=== PATIENT | female | born 1970 | race African-American/Black ===

== ENCOUNTER 2017-02-18 11:50 | Emergency (ER) | payer OTHER ==
--- NOTE | ~2017-02-18 | CT71 ---
[facility] A Service of [facility] RADIOLOGY TEXT RESULTS PATIENT: ROCKY BATEMAN LOCATION: [facility] : 70 UNIT #: [id number] AGE: [address]: Robin Napier MD SEX: F ORDER DR: [id number] [place] [id number] [facility]. [place], [place] [address] [id number] E MR#: [id number] Acc #: [id number] NAME: ROCKY BATEMAN. : 1970 SEX: F STUDY DATE/TIME: 02/18/2017 14:03 UNIT: [facility] ROOM: STUDY DESCRIPTION: CT Head Wo Contrast Attending Physician: Robin Napier M.D. Ordering Physician: Robin Napier M.D. Primary Care Physician: Gemini Acosta M.D. MEDICAL IMAGING REPORT This report is preliminary unless electronic signature is present EXAM CT head without contrast. INDICATIONS Dizziness and headache for the past [address] of the head. This CT exam was performed with one or more of the following radiation dose reduction techniques: automatic exposure control, adjustment of mA and/or kV according to patient size, and iterative reconstruction. COMPARISON None FINDINGS No acute hemorrhage, abnormal mass effect, extraaxial fluid collection or hydrocephalus. No calvarial fracture. Paranasal sinuses, mastoid air cells clear. IMPRESSION No acute intracranial findings. Dictated by... Vinnie Dahl M.D. THIS IS AN ELECTRONICALLY VERIFIED REPORT Vinnie Dahl M.D. at 02/19/2017 2:17 PM ZURDO/waldo TD: 02/18/2017 16:27 JOB #: [id number] [facility] A Service [facility] RADIOLOGY TEXT RESULTS PATIENT: ROCKY BATEMAN LOCATION: [facility] : 70 UNIT #: [id number] AGE: [address]: Robin Napier MD SEX: F ORDER DR: MEDICAL IMAGING REPORT Page 1 of 1 COPY
--- NOTE | ~2017-02-18 | EKG ---
PATIENT: ROCKY BATEMAN UNIT #: [id number] Ventricular Rate: 72 BPM Atrial Rate: 72 BPM P-R Interval: 154 ms QRS Duration: 72 ms Q-T Interval: 390 ms QTC Calculation(Bezet): 427 ms P Mulberry: 28 degrees Calculated R Mulberry: 36 degrees Calculated T Mulberry: 11 degrees Diagnosis Line: Normal sinus rhythm Diagnosis Line: Normal ECG Diagnosis Line: When compared with ECG of 02-MAY-2014 15:29, Diagnosis Line: No significant change was found Diagnosis Line: Confirmed by MATTHEW YANEZ MD ([id number]) on 02/19/2017 Diagnosis Line: 6:35:26 PM INTERPRETING MD: BEAU AGGARWAL
--- NOTE | ~2017-02-18 | CR169 ---
[facility] A Service of [facility] & [facility] RADIOLOGY TEXT RESULTS PATIENT: ROCKY BATEMAN LOCATION: [facility] : 70 UNIT #: [id number] AGE: [address]: Robin Napier MD SEX: F ORDER DR: [id number] [facility] [address] [facility] [place], [place] [address] [id number] E MR#: [id number] Acc #: [id number] NAME: ROCKY BATEMAN : 1970 SEX: F STUDY DATE/TIME: 02/18/2017 12:55 UNIT: [facility] ROOM: STUDY DESCRIPTION: CR Knee 2 Views Lt Attending Physician: Robin Napier M.D. Ordering Physician: Robin Napier M.D. Primary Care Physician: Gemini Acosta M.D. MEDICAL IMAGING REPORT This report is preliminary unless electronic signature is present EXAM Left knee 2 views 02/18/2017 1255 hours HISTORY 46-year-old woman with one week history of pain and swelling of the left knee. No reported injury. COMPARISON None. FINDINGS AP and cross-table lateral views demonstrate a small suprapatellar bursa effusion without lipohemarthrosis. There is trace spurring in the medial and lateral compartments. No fracture or loose body. IMPRESSION 1. Small suprapatellar bursa effusion is present without lipohemarthrosis or fracture. 2. Trace spurring in the medial and lateral compartments. No fracture or loose body. Dictated by... Hillary Murguia M.D. THIS IS AN ELECTRONICALLY VERIFIED REPORT Hillary Murguia M.D. at 02/18/2017 5:50 PM FROYLAN/anh TD: 02/18/2017 15:16 JOB #: [id number] MEDICAL IMAGING REPORT Page 1 of 1 COPY
[~2017-02-18 11:50] MED LIST: ACID REDUCER75 M1 PO; BENADRYL ALLERG25 MG PO; COMBIVENT INH14.7 GM INH; HYDROCODON-ACE1 EAC9 PO; LISINOPRIL-HCTZ1 T19 PO; LISINOPRIL10 MG PO; NORCO 7.5-3251 EACH PO; NORVASC PO; NORVASC10 MG PO; PREDNISONE PO; PROTONIX PO; TRIAMTERENE/HCTZ PO; ULTRAM PO; XANAX1 MG PO; ZANAFLEX4 M1 PO
[2017-02-18 12:31] LABS: BASOPHIL% 0.6 % (0-2.5); EOSINOPHIL# 0.3 X10e3 (0-0.7); EOSINOPHIL% 4.8 % (0.0-7.0); HEMATOCRIT 44.2 % (35.0-45.0); HEMOGLOBIN 14.2 gm/dL (12.0-16.0); LYMPHOCYTE# 2.7 X10e3 (1.0-3.5); LYMPHOCYTE% 40.8 % (17.0-45.0); MEAN CELL VOLUME 83.3 FL (83-96); MEAN CORPUSCULAR HEMOGLOBIN 26.7 PG (28-34); MEAN CORPUSCULAR HGB CONC 32.1 g/dL (30-36); MEAN PLATELET VOLUME 8.4 FL (6.5-11.5); MONOCYTE# 0.5 X10e3 (0-1.0); MONOCYTE% 7.9 % (3.0-12.0); NEUTROPHIL# 3.1 X10e3 (1.5-7.1); NEUTROPHIL% 45.9 % (40-75); PLATELET COUNT 224 X10e3 (140-420); RED BLOOD COUNT 5.31 X10e (3.90-5.30); RED CELL DISTRIBUTION WIDTH 14.9 % (11.0-15.5); WHITE BLOOD COUNT 6.6 X10e3 (4.0-10.5)
[2017-02-18 12:40] LABS: DIFF IND NO
[2017-02-18 12:58] LABS: ALBUMIN SERUM 4.4 g/dL (3.5-5.0); ALKALINE PHOSPHATASE 70 U/L (32-92); ALT (SGPT) 17 U/L (10-40); AST (SGOT) 15 U/L (10-42); BILIRUBIN,TOTAL 0.6 mg/dL (0.2-2.0); BLOOD UREA NITROGEN 12 mg/dL (9-23); CALCIUM SERUM 9.2 mg/dL (8.4-10.2); CARBON DIOXIDE 25 mmol/L (22-31); CHLORIDE 105 mmol/L (100-111); CREATININE SERUM 0.8 mg/dL (0.6-1.4); GLOM FILT RATE Estimated 102.6 mL/min (>60); GLUCOSE FASTING 104 mg/dL (70-110); POTASSIUM 4.1 mmol/L (3.5-5.1); PROTEIN TOTAL SERUM 7.5 g/dL (6.0-8.3); SODIUM 139 mmol/L (135-145)
[2017-02-18 13:07] LABS: BILIRUBIN, DIRECT <0.1 mg/dL (0.0-0.2); BILIRUBIN,INDIRECT 0.5 mg/dL (0.0-0.9)
== END 2017-02-18 15:22 | disposition home or self-care (01) ==
LOC: CED 11:50
PROVIDERS: Emergency Medicine
DX: R42 Dizziness and giddiness (principal); K21.9 Gastro-esophageal reflux disease without esophagitis; Z90.710 Acquired absence of both cervix and uterus; Z90.49 Acquired absence of other specified parts of digestive tract
CPT/HCPCS: 70450; 73560; 80048; 80076; 85025; 93005; 96372; 96374; 96375; 99284; J1100; J1885; J2765

== ENCOUNTER 2017-02-24 22:27 | Emergency (ER) | payer OTHER | END 2017-02-24 23:46 | disposition home or self-care (01) | LOC: CED 22:27 | DX: L02.214 Cutaneous abscess of groin (principal); L03.314 Cellulitis of groin; K21.9 Gastro-esophageal reflux disease without esophagitis; Z88.8 Allergy status to other drugs, medicaments and biological substances; Z91.041 Radiographic dye allergy status | CPT/HCPCS: 10060; 99283 ==

== ENCOUNTER 2017-03-07 06:52 | Emergency (ER) | payer OTHER ==
--- NOTE | ~2017-03-07 | CT4 ---
[facility] A Service of [facility] RADIOLOGY TEXT RESULTS PATIENT: ROCKY BATEMAN LOCATION: [facility] : 70 UNIT #: [id number] AGE: [address]: Kolton Farias MD SEX: F ORDER DR: [id number] [facility] [address] [facility]. [place], [place] [address] [id number] E MR#: [id number] Acc #: [id number] NAME: ROCKY BATEMAN. : 1970 SEX: F STUDY DATE/TIME: 03/07/2017 8:14 UNIT: [facility] ROOM: STUDY DESCRIPTION: CT Abd and Pelv Wo Cont Attending Physician: Kolton Farias M.D. Ordering Physician: Kolton Farias M.D. Primary Care Physician: Gemini Acosta M.D. MEDICAL IMAGING REPORT This report is preliminary unless electronic signature is present EXAM CT of the abdomen and pelvis without contrast media HISTORY Abdominal pain with rectal bleeding this morning, diarrhea, nausea, back pain. TECHNIQUE Axial imaging of the abdomen and pelvis was performed without contrast media and compared directly to 09/29/2014. The CT exam was performed with one or more of the following radiation dose reduction techniques: automatic exposure control, adjustment of mA and/or kV according to patient size, and iterative reconstruction. FINDINGS Scans through the lung bases are within normal limits. Redemonstrated is a mottled appearance to the liver. This is present on the patient's last study and most likely given its stability over time represents a benign entity such as geographic hepatic steatosis. Gallbladder is absent. Spleen is normal. Adrenal glands are normal and the pancreas is normal. The right and left kidney are unremarkable. No dilated or thickened loops of bowel are identified. There is colonic diverticulosis. No pelvic masses or fluid collections are seen. The uterus is surgically absent. Rectosigmoid shows no evidence of wall thickening or inflammation. Bladder is normal. CONCLUSION 1. No acute findings in the abdomen or pelvis. 2. Postop changes of cholecystectomy and hysterectomy. 3. Inhomogeneous appearance of the liver with multiple areas of low [facility] of [facility] RADIOLOGY TEXT RESULTS PATIENT: ROCKY BATEMAN LOCATION: [facility] : 70 UNIT #: [id number] AGE: [address]: Kolton Farias MD SEX: F ORDER DR: attenuation. This has been present for several years and most likely is benign. The most common etiology would be geographic hepatic steatosis. 4. Diverticulosis without CT evidence of diverticulitis. Dictated by... Jaswinder Mariano M.D. THIS IS AN ELECTRONICALLY VERIFIED REPORT Jaswinder Mariano M.D. at 03/10/2017 3:38 PM VENU/jay TD: 03/10/2017 13:11 JOB #: [id number] MEDICAL IMAGING REPORT Page 1 of 1 COPY
[2017-03-07 07:51] LABS: URINE SOURCE CLEAN CATCH
[2017-03-07 07:59] LABS: BASOPHIL# 0.1 X10e3 (0-0.3); BASOPHIL% 0.9 % (0-2.5); EOSINOPHIL# 0.3 X10e3 (0-0.7); EOSINOPHIL% 4.5 % (0.0-7.0); HEMATOCRIT 40.4 % (35.0-45.0); LYMPHOCYTE% 41.6 % (17.0-45.0); MEAN CELL VOLUME 84.2 FL (83-96); MEAN CORPUSCULAR HEMOGLOBIN 27.1 PG (28-34); MEAN CORPUSCULAR HGB CONC 32.2 g/dL (30-36); MEAN PLATELET VOLUME 8.6 FL (6.5-11.5); MONOCYTE# 0.6 X10e3 (0-1.0); MONOCYTE% 8.7 % (3.0-12.0); NEUTROPHIL# 3.2 X10e3 (1.5-7.1); NEUTROPHIL% 44.3 % (40-75); PLATELET COUNT 233 X10e3 (140-420); RED CELL DISTRIBUTION WIDTH 14.9 % (11.0-15.5); WHITE BLOOD COUNT 7.2 X10e3 (4.0-10.5)
[2017-03-07 08:07] LABS: DIFF IND NO
[2017-03-07 08:14] LABS: URINE APPEARANCE SL CLOUDY; URINE BILIRUBIN NEG (NEG); URINE BLOOD 4+ (NEG); URINE COLOR RED; URINE GLUCOSE NORM (NORM); URINE KETONE NEG (NEG); URINE LEUKOCYTE ESTERASE 1+ (NEG); URINE NITRATE NEG (NEG); URINE PROTEIN 2+ (NEG); URINE SPECIFIC GRAVITY 1.005 (1.003-1.035); URINE UROBILINOGEN NORM (NORM)
[2017-03-07 08:28] LABS: ALBUMIN SERUM 4.3 g/dL (3.5-5.0); ALKALINE PHOSPHATASE 65 U/L (32-92); ALT (SGPT) 34 U/L (10-40); AMYLASE 12 U/L (0-46); AST (SGOT) 21 U/L (10-42); BILIRUBIN, DIRECT 0.1 mg/dL (0.0-0.2); BLOOD UREA NITROGEN 17 mg/dL (9-23); BUN/CREATININE RATIO 15.45; CALCIUM SERUM 8.7 mg/dL (8.4-10.2); CARBON DIOXIDE 23 mmol/L (22-31); CHLORIDE 101 mmol/L (100-111); CREATININE SERUM 1.1 mg/dL (0.6-1.4); GLOM FILT RATE Estimated 69.7 mL/min (>60); GLUCOSE FASTING 113 mg/dL (70-110); LIPASE 19 U/L (22-51); POTASSIUM 3.9 mmol/L (3.5-5.1); PROTEIN TOTAL SERUM 7.3 g/dL (6.0-8.3); SODIUM 138 mmol/L (135-145)
[2017-03-07 08:29] LABS: BILIRUBIN,TOTAL <0.1 mg/dL (0.2-2.0)
[2017-03-07 08:45] LABS: URBCS1 AUWI 100-200 /[HPF] (0-2); UWBCS1 AUWI 0-2 (0-5)
[2017-03-07 08:46] LABS: CULTURE INDICATED? NO; URINE AMORPHOUS SEDIMENT AMORP PHOSPHATES; URINE SQUAMOUS EPITHELIAL CELL FEW /[HPF]; URINE YEAST PRESENT
== END 2017-03-07 09:01 | disposition home or self-care (01) ==
LOC: CED 06:52
PROVIDERS: Emergency Medicine
DX: K62.5 Hemorrhage of anus and rectum (principal); K57.92 Diverticulitis of intestine, part unspecified, without perforation or abscess without bleeding; Z90.49 Acquired absence of other specified parts of digestive tract; Z90.710 Acquired absence of both cervix and uterus; Z91.041 Radiographic dye allergy status; Z88.8 Allergy status to other drugs, medicaments and biological substances
CPT/HCPCS: 36415; 74176; 80048; 80076; 81003; 82150; 83690; 85025; 96361; 96372; 96374; 96375; 99284; J0500; J1885; J2405

== ENCOUNTER 2017-03-31 14:02 | Emergency (ER) | payer OTHER ==
[~2017-03-31] VITALS: Ht 162.6 cm; Wt 108.9 kg
--- NOTE | ~2017-03-31 | CR169 ---
[facility] A Service of [facility] & [facility] RADIOLOGY TEXT RESULTS PATIENT: ROCKY BATEMAN LOCATION: [facility] : 70 UNIT #: [id number] AGE: [address]: Sary Cohen APRN SEX: F ORDER DR: [id number] [facility] [address] [facility]. [place], [place] [address] [id number] E MR#: [id number] Acc #: [id number] NAME: ROCKY BATEMAN : 1970 SEX: F STUDY DATE/TIME: 03/31/2017 15:23 UNIT: [facility] ROOM: STUDY DESCRIPTION: CR Knee 2 Views Lt Attending Physician: Sary Cohen A.P.R.N. Ordering Physician: Ed Nick Chavez M.D. Primary Care Physician: Gemini Acosta M.D. MEDICAL IMAGING REPORT This report is preliminary unless electronic signature is present EXAM Left knee, 2 views HISTORY 46-year-old female, anterior knee pain for 2.5 weeks. COMPARISON 02/18/2017 FINDINGS Two views of the left knee demonstrates no fracture or dislocation. No joint effusion. No significant joint space narrowing. Minimal hypertrophic changes dorsal surface of the patella. IMPRESSION Unremarkable left knee. No change from 02/18/2017. Dictated by... Shalonda Mckee M.D. THIS IS AN ELECTRONICALLY VERIFIED REPORT Shalonda Mckee M.D. at 04/01/2017 7:59 AM ASHKAN/rogelio TD: 04/01/2017 00:26 JOB #: [id number] MEDICAL IMAGING REPORT Page 1 of 1 COPY
[2017-03-31 15:12] LABS: BASOPHIL% 0.8 % (0-2.5); EOSINOPHIL# 0.4 X10e3 (0-0.7); EOSINOPHIL% 6.2 % (0.0-7.0); HEMATOCRIT 41.7 % (35.0-45.0); HEMOGLOBIN 13.3 gm/dL (12.0-16.0); LYMPHOCYTE# 2.6 X10e3 (1.0-3.5); LYMPHOCYTE% 42.8 % (17.0-45.0); MEAN CELL VOLUME 84.1 FL (83-96); MEAN CORPUSCULAR HEMOGLOBIN 26.8 PG (28-34); MEAN CORPUSCULAR HGB CONC 31.9 g/dL (30-36); MEAN PLATELET VOLUME 8.4 FL (6.5-11.5); MONOCYTE# 0.5 X10e3 (0-1.0); MONOCYTE% 8.8 % (3.0-12.0); NEUTROPHIL# 2.5 X10e3 (1.5-7.1); NEUTROPHIL% 41.4 % (40-75); PLATELET COUNT 245 X10e3 (140-420); RED BLOOD COUNT 4.96 X10e (3.90-5.30); RED CELL DISTRIBUTION WIDTH 14.6 % (11.0-15.5); WHITE BLOOD COUNT 6.1 X10e3 (4.0-10.5)
[2017-03-31 15:18] LABS: DIFF IND NO
[2017-03-31 15:41] LABS: BUN/CREATININE RATIO 15.55; CREATININE SERUM 0.9 mg/dL (0.6-1.4); GLOM FILT RATE Estimated 88.9 mL/min (>60)
== END 2017-03-31 17:25 | disposition home or self-care (01) ==
LOC: CED 14:02 → CFTX 14:02
PROVIDERS: Nurse Practitioner
DX: M25.562 Pain in left knee (principal); I10 Essential (primary) hypertension; M48.00 Spinal stenosis, site unspecified; K21.9 Gastro-esophageal reflux disease without esophagitis; Z90.710 Acquired absence of both cervix and uterus; Z88.8 Allergy status to other drugs, medicaments and biological substances; Z91.041 Radiographic dye allergy status; Z79.899 Other long term (current) drug therapy
CPT/HCPCS: 29505; 36415; 73560; 80048; 85025; 85652; 86140; 99283